=== PATIENT | female | born 1965 | race Caucasian/White ===

== ENCOUNTER 2018-06-22 18:10 | Emergency (ER) | payer OTHER ==
--- NOTE | 2018-06-22 18:27 | ED GENERAL ADULT ---
History of Present Illness General Chief Complaint: Sore Throat, Dental Pain Stated Complaint: "SOMETHING STUCK IN THROAT" Source: patient Exam Limitations: no limitations Vital Signs & Intake/Output Vital Signs & Intake/Output Vital Signs Date Time Temp Pulse Resp B/P B/P Pulse O2 O2 Flow FiO2 Mean Ox Delivery Rate 06/22 2233 80 18 132/64 94 Non 1.0L ReBreather 06/22 2232 81 22 132/64 95 Non ReBreather 06/22 2100 Room Air 06/22 1816 100 22 185/84 97 Room Air Allergies Coded Allergies: shellfish derived (HIVES 06/22/18) Reconcile Medications Pantoprazole Sodium (Protonix) 20 MG TABLET.DR 2 TAB PO DAILY GERD Triage Note: PER PT STEAK STUCK IN THROAT SINCE YESTERDAY MAINTAINING AIRWAY BUT UNABLE TO SWALLOW LIQUIDS Triage Nurses Notes Reviewed? yes HPI: 52-year-old woman history of HIV on haart, depression, presenting to the emergency department with foreign body sensation esophagus and inability to tolerate any p.o. since yesterday. Patient states she was eating steak when she had abrupt onset of foreign body sensation to the area of her lower esophagus. She denies any other chest pain, shortness of breath, dizziness, headache. She has been unable to eat or drink or swallow her own secretions since yesterday. She called her PMD and was advised to come in to the emergency department. She arrives in significant discomfort. She has never had this problem before. She denies heavy alcohol use but does endorse smoking. She denies any history of prior endoscopy. (Ganga Pablo MD) Past History Travel History Traveled to [place] past 21 day No Medical History Any Pertinent Medical History? see below for history Neurological: NONE EENT: NONE Cardiovascular: NONE Respiratory: NONE Gastrointestinal: NONE Hepatic: NONE Renal: NONE Musculoskeletal: NONE Psychiatric: depression Endocrine: NONE Blood Disorders: HIV Surgical History Surgical History: none Psychosocial History What is your primary language South African Tobacco Use: Current Daily Use Daily Tobacco Use Amount/Type: => 5 Cigarettes daily Family History Hx Contributory? No (Ganga Pablo MD) Review of Systems Review of Systems Constitutional: Reports: no symptoms. GI: Reports: see HPI. All Other Systems: Reviewed and Negative (Ganga Pablo MD) Physical Exam Physical Exam General Appearance: well developed/nourished, no apparent distress, alert, awake , anxious, mild distress Head: atraumatic, normal appearance Eyes: Bilateral: normal appearance, PERRL. Ears, Nose, Throat: normal pharynx, normal ENT inspection Neck: normal inspection, supple, full range of motion Respiratory: normal breath sounds, chest non-tender, no respiratory distress, lungs clear Cardiovascular: regular rate/rhythm, normal peripheral pulses Gastrointestinal: soft, non-tender Back: normal inspection, normal range of motion Extremities: normal inspection, normal capillary refill, normal range of motion, no edema Neurologic/Psych: no motor/sensory deficits, awake, alert, oriented x 3 Core Measures ACS in differential dx? Yes CVA/TIA Diagnosis: No Sepsis Present: No Sepsis Focused Exam Completed? No (Samy LAM,Ganga) Progress Differential Diagnoses I considered the following diagnoses in my evaluation of the patient: Clinically suspect impacted foreign body in this patient based on exam, history, and presentation. Low suspicion for acute cardiopulmonary process. Doubt aspiration given history. Some concern for underlying malignancy/esophageal pathology in this patient. Plan of Care: Orders Procedure Date/time Status Add-on Test (ER Only) 06/22 1840 Active EKG 06/22 1840 Active TROPONIN LEVEL 06/22 1838 Complete PARTIAL THROMBOPLASTIN TIME 06/22 1814 Complete PROTHROMBIN TIME 06/22 1814 Complete COMPREHENSIVE METABOLIC PANEL 06/22 1814 Complete CBC WITHOUT DIFFERENTIAL 06/22 1814 Complete Laboratory Tests 06/22/181837: Anion Gap 11, Estimated GFR > 60, BUN/Creatinine Ratio 25.0, Glucose 132 H, Calcium 9.0, Total Bilirubin 0.6, AST 23, ALT 35, Alkaline Phosphatase 147 H, Troponin I < 0.01, Total Protein 8.3 H, Albumin 4.6, Globulin 3.7, Albumin/ Globulin Ratio 1.2, PT 11.9, INR 1.09, APTT 29, CBC w Diff NO MAN DIFF REQ, RBC 5.40, MCV 92.1, MCH 30.9, MCHC 33.5, RDW 14.4, MPV 8.2, Gran % 79.5 H, Lymphocytes % 14.6 L, Monocytes % 5.3, Eosinophils % 0.3, Basophils % 0.3, Absolute Granulocytes 8.0 H, Absolute Lymphocytes 1.5, Absolute Monocytes 0.5, Absolute Eosinophils 0, Absolute Basophils 0 Plan for emergent/urgent endoscopy, basic labs, troponin 1, EKG. Patient undergoes urgent endoscopy in the emergency department following general anesthesia and intubation. She is extubated following successful removal of meat bolus. Dr. Medeiros recommends starting PPI and GI follow-up. Patient discharged home with return precautions and follow-up instructions. Initial ED EKG: normal intervals, normal p-waves, normal QRS complex, normal sinus rhythm, no ST T wave changes (Ganga Pablo MD) Departure Departure Time of Disposition: 2139 Disposition: HOME OR SELF CARE Condition: Stable Clinical Impression Primary Impression: Esophageal obstruction due to food impaction Referrals: Austin Enrique (PCP/Family) Additional Instructions: Thank you for coming to [facility] today. Dr. Medeiros recommend that you follow-up with gastroenterology, either with her or 1 of her colleagues. Please drink only clear liquids for the next day. Starting tomorrow, you can start eating soft foods. Do this for about 2 days and then you can start eating regular foods. Departure Forms: Customer Survey General Discharge Information Prescriptions: Current Visit Scripts Pantoprazole Sodium (Protonix) 2 TAB PO DAILY #60 TAB (Ganga Pablo MD) Resident Co-Sign Statement Statement: ED Attending supervision documentation- [] I saw and evaluated the patient. I have also reviewed all the pertinent lab results and diagnostic results. I agree with the findings and the plan of care as documented in the Resident's documentation. [X] I have reviewed the ED Record and agree with the Resident's documentation. [] Additions or exceptions (if any) to the Resident's note and plan are summarized below: [] (Khushbu LAM,Solitario Caraballo) Critical Care Note Critical Care Note Critical Care Time: non-applicable (Ganga Pablo MD) ED Attending Observation Initial Observation Note: I have seen and personally examined MÓNICA LOYD on 06/22/18 at 2138. I agree with the current emergency department documentation. The disposition (admission or discharge) is uncertain at this time, she needs a period of observation for the following reason(s): The ED Nurse caring for this patient has been personally informed as to what the patient is being observed for. (Ganga Pablo MD)
[2018-06-22 18:43] LABS: ABSOLUTE BASOPHIL COUNT 0 /CUMM (0.0-0.2); ABSOLUTE EOSINOPHIL COUNT 0 /CUMM (0.0-0.7); ABSOLUTE LYMPH COUNT 1.5 /CUMM (1.2-3.4); ABSOLUTE MONOCYTE COUNT 0.5 /CUMM (0.10-0.60); BASOPHIL % 0.3 % (0.0-2.0); EOSINOPHIL % 0.3 % (0-5); GRANULOCYTE % 79.5 % (42.2-75.2); HEMATOCRIT 49.8 % (37-47); MEAN CORPUSCULAR HGB 30.9 PG (27.0-31.0); MEAN CORPUSCULAR HGB CONC 33.5 G/DL (33.0-37.0); MEAN CORPUSCULAR VOLUME 92.1 FL (81.0-99.0); MEAN PLATELET VOLUME 8.2 FL (7.4-10.4); PLATELET COUNT 352 /CUMM (130-400); RBC DISTRIBUTION WIDTH 14.4 % (11.5-14.5)
[2018-06-22 19:20] LABS: PT 11.9 SEC (9.4-12.5); PTT 29 SEC (25-37)
[2018-06-22] MEDS ORDERED: PROTONIX20 M1 PO (21:46)
--- NOTE | 2018-06-22 21:48 | Proc Note Endoscopy ---
Endoscopy Procedure Medical History: unchanged Mental Status: alert/oriented Heart/Lung Eval Prior to Sedation: within normal limits Candidate for Sedation? Yes Procedure Date: 06/22/18 Procedure Type: EGD Distribution Supervisor: MD Patel Deborah E. ASA Classification: III Indications: Foreign body esophagus Instrument: diagnostic gastroscope Meds Received: MAC Patient's Tolerance: good Complications: none Extent Reached: second part of duodenum Procedure: Note: Informed consent was obtained prior to procedure. Risks and benefits of procedure were discussed with patient. Potential complications discussed included perforation, bleeding, abdominal pain, and adverse reaction to medications. It was explained that iany or all of these complications could result in the need for extended hospitalization, emergency surgery, transfusion of packed red blood cells (with the risk of HIV or hepatitis virus), intubation with mechanical ventilation, and possible need for antibiotics. It was further explained that an existing tumor polyp or mucosal abnormality might not be identified at the time of the procedure thus resulting in a missed opportunity for early diagnosis and treatment of a gastrointestinal malignancy or disease with possible interval development of a gastrointestinal cancer or other disease with possible worsening of clinical condition in the interval between endoscopies. It was also discussed that complications are not limited to those listed above. Possible alternatives to endoscopic treatment or evaluation were discussed. All questions were answered. Continuous EKG and blood pressure monitors were attached. Supplemental oxygen was provided with O2 Sat monitoring. Patient was placed in the left lateral decubitus position. A surgical timeout was performed. All persons in the room were identified. All concerns were expressed and answered. Prior to intubation, upper dentures were removed and lower loose teeth were noted. Patient was intubated and sedated per anesthesia for airway protection given foreign body esophagus. A bite block was placed in the mouth. The Olympus upper endoscope was advanced under direct vision to the level of the third portion of the duodenum. Esophagus: Upon intubating the esophagus the scope was carefully advanced in the mid esophagus there was a long ropey piece of steak which was easily and gently pushed through the GE junction, without any resistance, into the stomach. There was marked edema as well as erythema and linear erosion at the GE junction. There was also evidence of an underlying Schatzki's ring that was nonobstructing. Stomach: The stomach had a normal mucosal and vascular pattern throughout its entirety. Retroflexed view of the cardiofundic region was not performed given the presence of a modest amount of secretions in the gastric lumen which were suctioned. The pylorus was patent and intubated. There was diffuse gastric antral erythema and erosion noted. Duodenum: The duodenum was fully examined from bulb down to D1. There was marked nodularity with ulceration and exudate as well as edema throughout. With the endoscope in the forward-viewing position, it was slowly withdrawn and all areas were re-inspected and findings are as described previously. Patient tolerated the procedure well. EBL: Minimal Specimens Removed: None Findings: 1. Foreign Body Esophagus 2. Gastritis with Erosions 3. Duodenal Ulcers with Nodularity 4. Schatzki's Ring 5. Erosive Esophagitis, likely due to trauma from foreign body which had been present almost 48 hours Impression: 1. Foreign Body Esophagus 2. Gastritis with Erosions 3. Duodenal Ulcers with Nodularity 4. Schatzki's Ring 5. Erosive Esophagitis, likely due to trauma from foreign body which had been present almost 48 hours Recommendations: 1. The results of the procedure have been discussed with the patient's father. All questions have been answered. Patient has been instructed to call the office immediately for nausea, vomiting, abdominal pain, fever or shaking chills or any change in clinical condition. Patient has expressed understanding of discharge instructions and agreed to call for any questions or concerns. Patient has been given written instructions to this effect. 2. Discussed discharge plans with Dr. Pablo. 3. Patient to be discharged with instructions for full liquid diet until a.m. 4. Patient may begin soft solid diet if tolerated tomorrow a.m. 5. Patient will need follow up with GI as outpatient given findings on EGD 6. Patient to be discharged with protonix 40 mg po q a.m. 30-45 minutes before breakfast 7. Patient will need folow up with a dentist given loose teeth which likely led to episode of food impaction.
== END 2018-06-22 23:12 ==
LOC: ERH 18:10
PROVIDERS: Physician Assistant Medical
DX: K22.2 Esophageal obstruction (principal); K20.8 Other esophagitis; K21.9 Gastro-esophageal reflux disease without esophagitis; K29.60 Other gastritis without bleeding; K26.9 Duodenal ulcer, unspecified as acute or chronic, without hemorrhage or perforation; F17.210 Nicotine dependence, cigarettes, uncomplicated; B20 Human immunodeficiency virus [HIV] disease; F32.9 Major depressive disorder, single episode, unspecified
CPT/HCPCS: 93005; 93010; 96374; 96375; J1610; J1885; J2405; J3490